=== PATIENT | female | born 1995 | race Caucasian/White ===

== ENCOUNTER → 2019-06-25 | Outpatient (CLI) | payer OTHER ==
[~2019-06-25] MED LIST: GADOTERATE 7.5 MMOL/15ML VIAL. IVP ONE
--- NOTE | 2019-06-26 11:00 | KCIC ---
BRAIN WO/W CONTRAST History: Chronic migraine Technique: Multiplanar, multi sequential pre and postcontrast MR imaging was performed of the brain. Contrast: 15 mL Dotarem Comparison: None Findings: No acute infarct. No intracranial hemorrhage. No mass effect. No hydrocephalus. Extra-axial spaces are unremarkable. No pathologic enhancement. Imaged orbits are unremarkable. Small left maxillary sinus mucous retention cyst. Mastoid air cells are clear. Impression: 1. No acute intracranial abnormality. Electronically signed by: Berto Gaines DO (06/26/2019 10:57 AM) [id number]
== END | disposition home or self-care (01) ==
LOC: KCIC MRI 14:27
PROVIDERS: ATTEND Physician Assistant
DX: G43.909 Migraine, unspecified, not intractable, without status migrainosus (principal); J34.1 Cyst and mucocele of nose and nasal sinus
CPT/HCPCS: 70553; A9575